=== PATIENT | male | born 1975 | race Two or more races ===

== ENCOUNTER 2017-06-28 13:22 | Emergency (ER) | payer OTHER ==
[~2017-06-28] VITALS: Ht 175.3 cm; Wt 115.7 kg
--- NOTE | 2017-06-28 13:25 | NUR ---
BIBRA 878 C/O FACIAL LACERATION S/P GLF +ETOH, -KO, NAD NOTED, VSS, RESP EVEN AND UNLABORED, WAITING FOR MD BALL.
[2017-06-28] MEDS ORDERED: TDAP [DIPH/PERTUSSIS/TET] 0.5 ML VIAL IM ONE ×2 (14:30→14:34)
--- NOTE | 2017-06-28 14:38 | NUR ---
PATIENT STATING HE RECEIVED A TETANUS VACCINE WITHIN THE LAST 2 WEEKS. MD INFORMED, NEW ORDER CANCELLED.
--- NOTE | 2017-06-28 14:48 | NUR ---
PATIENT TAKEN TO CT VIA STRETCHER.
--- NOTE | 2017-06-28 14:57 | NUR ---
PATIENT RETURNED FROM CT.
[2017-06-28] MEDS ORDERED: LIDOCAINE 1% INJ 50 ML MDV IJ ONE (16:00)
[2017-06-28] MEDS ORDERED: LIDOCAINE HCL/PF 1% 30 ML SDV ONE (16:00)
--- NOTE | 2017-06-28 17:27 | NUR ---
CALLED [facility] RN [employer]FERR[employer] FOR P[employer]IT[employer]IC[employer], PT STATING "IM HOMELESS AND I GOT NO WHERE TO GO, SEND ME TO REHAB OR SOMEWHERE.
--- NOTE | 2017-06-28 17:32 | NUR ---
HOMELESS RESOURCE PROVIDED; THE PATIENT VERBALIZED UNDERSTANDING OF CARE
[2017-06-28 17:34] VITALS: BP 135/85
== END 2017-06-28 17:36 | disposition home or self-care (01) ==
LOC: ER 13:24
DX: S02.2XXA Fracture of nasal bones, initial encounter for closed fracture (principal); F20.9 Schizophrenia, unspecified; F31.9 Bipolar disorder, unspecified; M48.02 Spinal stenosis, cervical region; W19.XXXA Unspecified fall, initial encounter; Y93.89 Activity, other specified; Y92.89 Other specified places as the place of occurrence of the external cause; Y99.8 Other external cause status
CPT/HCPCS: 12013; 70450; 70486; 72125; 99284; A4606 ×2; A6402; J3490; Z7610 ×2; 90715